=== PATIENT | female | born 1995 | race Caucasian/White ===

== ENCOUNTER → 2017-02-06 | Outpatient (CLI) | payer OTHER ==
[~2017-02-06] MED LIST: NITR25SU PO; POTA1POW PO; PRENTAB26 PO; birth control patch TD
== END | disposition home or self-care (01) ==
LOC: C.LAB1850 10:58
PROVIDERS: ATTEND Obstetrics & Gynecology
DX: N91.2 Amenorrhea, unspecified (principal)

== ENCOUNTER → 2017-10-30 | Outpatient (CLI) | payer OTHER | END | disposition home or self-care (01) | LOC: C.PAPS 13:38 | PROVIDERS: ATTEND Obstetrics & Gynecology | DX: Z11.3 Encounter for screening for infections with a predominantly sexual mode of transmission (principal) ==

== ENCOUNTER → 2017-10-30 | Outpatient (CLI) | payer OTHER ==
[2017-11-04 07:05] LABS: CHLAMYDIA TRACH RNA*** NOT DETECTED (NOT DETECTED); GC (NEIS GONORRHOEAE)RNA** NOT DETECTED (NOT DETECTED)
== END | disposition home or self-care (01) ==
LOC: C.LABSPEC 13:19
PROVIDERS: ATTEND Obstetrics & Gynecology
DX: Z11.3 Encounter for screening for infections with a predominantly sexual mode of transmission (principal)

== ENCOUNTER → 2017-12-18 | Outpatient (CLI) | payer OTHER | END | disposition home or self-care (01) | LOC: C.LABSPEC 17:58 | PROVIDERS: ATTEND Obstetrics & Gynecology | DX: O09.291 Supervision of pregnancy with other poor reproductive or obstetric history, first trimester (principal); Z3A.00 Weeks of gestation of pregnancy not specified ==

== ENCOUNTER → 2017-12-22 | Outpatient (CLI) | payer OTHER ==
[2017-12-22 16:55] LABS: BASO % 0.2 %; BASO ABS # 0.03 K/uL (0-0.2); EOS % 0.9 %; EOS ABS # 0.12 K/uL (0-0.5); HEMATOCRIT 40.4 % (37-47); HEMOGLOBIN 14.2 g/dL (12.0-16.0); IG# 0.06 K/uL (0.00-0.02); LYMPH % 18.8 %; LYMPH ABS # 2.39 K/uL (1.2-3.4); MEAN CELL VOLUME 86.7 fL (80-100); MEAN CORPUSCULAR HEMOGLOBIN 30.5 pg (25-34); MEAN CORPUSCULAR HGB CONC 35.1 g/dl (32-36); MONO % 5.5 %; NEUT % 74.1 %; NEUT ABS # 9.42 K/uL (1.4-6.5); PLATELET COUNT 292 K/uL (130-400); RED CELL DISTRIBUTION WIDTH CV 12.6 % (11.5-14.5); RED CELL DISTRIBUTION WIDTH SD 40.2 fL (36.4-46.3); WHITE BLOOD COUNT 12.72 K/uL (4.8-10.8)
== END | disposition home or self-care (01) ==
LOC: C.LAB1850 16:19
PROVIDERS: ATTEND Obstetrics & Gynecology
DX: O09.291 Supervision of pregnancy with other poor reproductive or obstetric history, first trimester (principal)

== ENCOUNTER → 2017-12-22 | Outpatient (CLI) | payer OTHER | END | disposition home or self-care (01) | LOC: C.LABSPEC 17:48 | PROVIDERS: ATTEND Obstetrics & Gynecology | DX: O09.291 Supervision of pregnancy with other poor reproductive or obstetric history, first trimester (principal) ==

== ENCOUNTER → 2018-02-16 | Outpatient (CLI) | payer OTHER | END | disposition home or self-care (01) | LOC: C.LAB1850 17:05 | PROVIDERS: ATTEND Obstetrics & Gynecology | DX: O09.292 Supervision of pregnancy with other poor reproductive or obstetric history, second trimester (principal); Z3A.00 Weeks of gestation of pregnancy not specified ==

== ENCOUNTER 2025-01-16 01:15 | Observation (INO) ==
[2025-01-16] MEDS: MoRPHine SULFATE 2 MG/ML CARP IV STA (01:51)
[2025-01-16] MEDS: ONDANSETRON INJ 2 MG/ML 2 ML VIAL IV STA ×2 (01:51→05:31)
[2025-01-16 01:59] LABS: Hematocrit (blood only) 42.2 % (37.0-47.0); Hemoglobin 14.2 g/dl (12.0-16.0); Mean Corpuscular Hemoglobin 28.5 pg (25.0-34.0); Mean Corpuscular Hgb Conc 33.6 g/dL (32.0-36.0); Mean Corpuscular Volume 84.7 fL (80.0-100.0); Mean Platelet Volume 10.5 fL (9.4-12.4); Platelet Count 351 K/uL (130-400); RDW Coefficient of Variation 12.5 % (11.5-14.5); RDW Standard Deviation 38.3 fL (36.4-46.3); Red Blood Count 4.98 M/uL (4.20-5.40); White Blood Count 18.94 K/ul (4.8-10.8)
[2025-01-16 03:09] LABS: Appearance Urine Cloudy (Clear); Bacteria Urine Automated 2+ (None Seen); Bilirubin Urine Negative (Negative); Blood Urine 2+ (Negative); Calcium Oxalate Crystals Urine Present (None Prsent); Cast Urine Automated 0-2 /lpf (0-2); Color Urine Dark Yellow; Glucose Urine UA Negative (Negative); Ketones Urine 2+ (Negative); Leukocyte Esterase Urine Negative (Negative); Mucus Urine Present (None Prsent); Nitrite Urine Negative (Negative); Protein Urine Trace (Negative); Specific Gravity Urine 1.029 (1.000-1.030); Urobilinogen Urine Negative (Negative); WBC Urine Automated 0-5 /hpf (0-5)
[2025-01-16 03:14] LABS: Alanine Aminotransferase 27 U/L (7-52); Albumin Globulin Ratio 1.5 (0.9-2); Albumin Level 4.5 gm/dl (3.4-5.0); Alkaline Phosphatase 56 U/L (34-104); Anion Gap 9 (3-11); Aspartate Aminotransferase 22 U/L (13-39); BUN Creatinine Ratio 10.7 (10-20); Basophils # (auto) 0.07 K/uL (0.00-0.20); Basophils % (auto) 0.4 %; Bilirubin,Total 0.5 mg/dl (0.2-1.0); Blood Urea Nitrogen 9 mg/dl (6-23); Calcium 9.4 mg/dl (8.6-10.3); Carbon Dioxide 24 mmol/L (21-32); Chloride 107 mmol/L (98-107); Creatinine Clr Calc Pharmacy 106.8 ml/min; Eosinophils # (auto) 0.61 K/uL (0.00-0.50); Eosinophils % (auto) 3.2 %; Glucose 153 mg/dl (70-99(Fasting)); Immature Granulocytes % (auto) 0.5 %; Lipase 4 U/L (11-82); Lymphocytes # (auto) 1.91 K/uL (1.20-3.40); Lymphocytes % (auto) 10.1 %; Magnesium 1.7 mg/dl (1.7-2.4); Monocytes # (auto) 0.65 K/uL (0.11-0.59); Monocytes % (auto) 3.4 %; Neutrophils % (auto) 82.4 %; Potassium 3.2 mmol/L (3.5-5.1); Sodium 140 mmol/L (136-145); Total Protein 7.5 gm/dl (6.0-8.3)
[2025-01-16 03:20] LABS: Troponin I High Sensitivity < 2.3 pg/ml (0-14)
[2025-01-16] MEDS: OPTIRAY 320 100ml IV ONE (03:41)
[2025-01-16] MEDS: SODIUM CHLORIDE 0.9% 1,000 ML IV ONE (03:49)
[2025-01-16] MEDS: MoRPHine SULFATE 4 MG/ML 1 ML CARP\\VIAL IV STA (04:03)
--- NOTE | 2025-01-16 04:06 | Ultrasound Report ---
EXAM: US pelvic complete CLINICAL HISTORY: Left side pain. hx hyster. Evaluation of ovary. TECHNIQUE: Ultrasound examination of the pelvis was performed in real-time and duplex using a trans-abdominal approach. The vascular flow was evaluated using color flow and with a spectral pattern of the flow waveform. COMPARISON: None. FINDINGS: Uterus: The uterus is not visualized. (Hx of hysterectomy) Ovaries: Right ovary size: 3.3 X 2.6 X 2.3 cm. It shows an ovarian cyst measuring 2.4 x 2.1 x 1.8 cm. Left ovary size: 3 X 1.1 X 1.6 cm. It lies high in the pelvis. Ovaries are normal in size with preserved follicular development and preserved blood flow. No ovarian solid masses or free fluid were identified. Adnexa: Normal appearance without evidence of masses or free fluid. Bladder: Urinary bladder: Not clearly visualized, likely due to empty status with no definite intraluminal masses. IMPRESSION: 1. Unremarkable both ovaries with likely right dominant follicle, measuring 2.4 cm. 2. Nonvisualization of the uterus (history of hysterectomy). 3. No free fluid was noted in the pelvis. RECOMMENDATIONS: Clinical correlation with symptoms and further evaluation as indicated. Electronically signed by Sachin Franz 01-16-2025 04:06 AM
--- NOTE | 2025-01-16 04:27 | CT Scan Report ---
EXAM: CT abd pelvis IV con only CLINICAL HISTORY: left side abdominal pain TECHNIQUE: Multiple contiguous axial images were obtained from the level of diaphragm to the pubis symphysis. This study was acquired after the IV administration of iodinated contrast material, given the patients indications for the examination. If IV contrast material had not been administered, the likelihood of detecting abnormalities relevant to the patients condition would have been substantially decreased. Coronal and sagittal reformatted images were generated and reviewed to improve anatomic localization and optimize lesion detection. CT scan was performed according to ALARA (as low as reasonable achievable). COMPARISON: No FINDINGS: The visualized lung bases are clear. ABDOMEN/PELVIS: The liver is normal in size and attenuation. No focal liver lesions are seen. There is no intra or extrahepatic biliary ductal dilatation. Hepatic vasculature is patent. The gallbladder is unremarkable. The spleen, pancreas, and adrenal glands are unremarkable. The kidneys are normal in size and attenuation. There is no perinephric fat stranding. No renal calculi or renal masses are identified. Calculus of size 4.8mm is noted in the left distal ureter causing mild left hydroureteronephrosis. The right ureter is normal in caliber and no ureteral calculus is seen. The bladder is normal in contour. Follicular cyst of size 20 x 16mm in right ovary. No evidence of focal or diffuse bowel wall thickening or evidence of bowel obstruction is seen. The appendix is visualized in the right lower quadrant and appears within normal limits. No adenopathy or fluid collections are seen. The aorta is normal in caliber. No aggressive appearing osseous lesions are identified. IMPRESSION: 1. Obstructive left distal ureteric calculus causing mild left hydroureteronephrosis. Electronically signed by Torito Lucia 01-16-2025 04:27 AM
[2025-01-16 04:41] LABS: Adenovirus PCR Not Detected (NotDetected); Bordetella parapertussis PCR Not Detected (NotDetected); Bordetella pertussis PCR Not Detected (NotDetected); Chlamydia pneumoniae PCR Not Detected (NotDetected); Coronavirus 229E PCR Not Detected (NotDetected); Coronavirus CoV-2 (COVID19)PCR Not Detected (NotDetected); Coronavirus HKU1 PCR Not Detected (NotDetected); Coronavirus NL63 PCR Not Detected (NotDetected); Coronavirus OC43PCR Not Detected (NotDetected); Human Metapneumovirus PCR Not Detected (NotDetected); Influenza A PCR Not Detected (NotDetected); Influenza B PCR Not Detected (NotDetected); Mycoplasma pneumoniae PCR Not Detected (NotDetected); Parainfluenza Virus 1 PCR Not Detected (NotDetected); Parainfluenza Virus 2 PCR Not Detected (NotDetected); Parainfluenza Virus 3 PCR Not Detected (NotDetected); Parainfluenza Virus 4 PCR Not Detected (NotDetected); Respiratory Syncytial VirusPCR Not Detected (NotDetected); Rhinovirus/Enterovirus PCR Not Detected (NotDetected)
[2025-01-16] MEDS: cefTRIAXone SODIUM 2,000 MG/50 ML BAG IV STA (04:58)
--- NOTE | 2025-01-16 05:18 | History & Physical Report ---
Date of Service January 16, 2025 Assessment & Plan (1) Renal calculus, left: Plan 29-year-old female PMHx anxiety, premenstrual tension syndrome, and partial hysterectomy presenting for L sided flank pain starting at 2230. ED evaluation reveals leukocytosis 18.94, neutrophil predominant; CMP potassium 3.2, lipase 4; UA with ketones, blood, RBC, 2+ bacteria, calcium oxalate crystals, and mucus; BioFire negative; CTAP reveals obstructive L distal ureteric calculus causing mild L hydroureteronephrosis; pelvic ultrasound unremarkable ovaries with likely are dominant follicle, no free fluid in pelvis; EKG NSR with sinus arrhythmia at 89 bpm. Provided with 1L NSS, ondansetron, morphine, and Rocephin in ED. 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 Does have history of partial hysterectomy approximately 1 year ago, without history of renal calculi. Patient without history of Pseudomonas, however, no prior urine cultures able to be evaluated. No temperature reported, but patient has remained tachycardic in the low 100s throughout ED stay. Overall, pain being managed and pt remains without fever. Slightly tachycardic but has had h/o tachycardia in the past and appears to be relatively appropriate. Will place on tele to monitor. - UA shows ketones, blood, RBC, bacteria, calcium oxalate crystals, and mucus; pending culture - ? bacteria vs contaminant however given leukocytosis in presence of renal calculi, will opt to continue antibiotics - CTAP with L distal ureteric calculus causing mild L hydroureteronephrosis - Pelvic ultrasound with unremarkable ovaries and no free fluid in pelvis - Urine strainer - Plasma-Lyte @ 100 mL/hr - Ceftriaxone 2g IV daily; Zofran as needed N/V, morphine as needed pain - Urology consulted- appreciate input and recs; will remain NPO until urology can evaluate #Hypokalemia Asymptomatic currently - K 3.2; Mg 1.7- BMP am - 40 mEq KCl po #Anxiety- Lexapro, continue #H/o seizure- Follows with neurology annually, last seizure appears to be March 2016; on Keppra at baseline, no missed doses- continue Dispo: Admit, med/telemetry VTE prophylaxis: Encourage ambulation, consider adding chemical prophylaxis if prolonged stay This document was dictated utilizing Dragon Medical One. Please excuse any grammatical errors that may be secondary to use of this software. Admission and Anticipated Discharge Date Admission Date: 01/16/2025 History of Present Illness Chief Complaint: L flank pain Primary Care Provider: Tramaine Barrientos DO 29-year-old female PMHx anxiety, premenstrual tension syndrome, and partial hysterectomy presenting for L sided flank pain starting at 2230. Patient reports sudden onset L sided flank pain that was 10 out of 10 in nature and a sharp pain. States it started to radiate to the front but did not radiate into groin. At time of visit, pain has subsided some following pain medication administration and is currently 7 out of 10 on the pain scale. Patient has had episodes of nausea with vomiting since the onset of the pain. Specifically denying dysuria, frequency, urgency, or hematuria. States that she has never had this happen before. No fever or chills. Otherwise denying chest pain, shortness of breath, cough stations, abdominal pain, diarrhea/constipation, LUTS, URI symptoms, or headache. ED evaluation reveals leukocytosis 18.94, neutrophil predominant; CMP potassium 3.2, lipase 4; UA with ketones, blood, RBC, 2+ bacteria, calcium oxalate crystals, and mucus; BioFire negative; CTAP reveals obstructive L distal ureteric calculus causing mild L hydroureter onephrosis; pelvic ultrasound unremarkable ovaries with likely are dominant follicle, no free fluid in pelvis; EKG NSR with sinus arrhythmia at 89 bpm. Provided with 1L NSS, ondansetron, morphine, and Rocephin in ED. Please see Dr. Burgos's attestation for adjustments/additions to treatment plan. Allergies Allergy/AdvReac Type Severity Reaction Status Date / Time Penicillins Allergy Mild GI Upset. Verified 09/20/24 12:09 Can take amoxicillin latex Allergy Unknown LATEX Verified 09/20/24 12:09 CONDOMS "BURN" Home Medications Medication Instructions Recorded Confirmed Type levetiracetam 500 mg tablet 500 mg PO BID 05/24/23 01/16/25 History (Keppra) loratadine 10 mg tablet (Claritin) 10 mg PO DAILY PRN Allergy Symptoms 04/22/24 01/16/25 History escitalopram oxalate 10 mg tablet 10 mg PO DAILY #90 tabs 08/30/24 01/16/25 Rx Past Med/Surg History Problem List (Updated 01/16/25 @ 11:03 by Ashutosh Paz MD) Nephrolithiasis Renal calculus, left Tachycardia Low vitamin D level Dental caries Left ear pain Immunization, varicella School physical exam Obese Anxiety Annual physical exam Hypokalemia (Acute) Premenstrual tension syndrome Medical History (spontaneous vaginal delivery) Pelvic pain complicating GERD (gastroesophageal reflux disease) Occasional heartburn PIH ( induced hypertension) hx Seizure Last Seizure - 2015. Takes Keppra 500mg PO BID Surgical History History of hysterectomy 07-11-[address] Reynolds, [facility] History of dilatation and curettage SAB 05/2014 Family History Grandmother (Paternal) Breast cancer Diabetes Dyslipidemia Hypertension Heart disease Family/Other Prostate cancer Denies family history of Ovarian cancer Myocardial infarction Colorectal cancer Social History Smoking Status: Never smoker Second Hand Exposure: Yes (hx growing up); Do You Dip or Chew Tobacco: No; Hx Alcohol Use: No Hx Substance Use: No Preferred Language: Nepali Communication Ability: Effective Communication Ability Comment: glasses Visual Impairment: Limited Hearing Ability: Normal 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: No Beliefs That Will Affect Care: None marital status: Current Living Situation: Spouse Current Living Situation Comment: 1 level apartment with and daughter current occupational status: employed How many Children do You have: 1 Feels Safe at Home: Yes and No Is there a partner from a previous relationship who is making you feel unsafe now?: No Safety Concerns: Feels Safe At This Time Childhood Exposure to Second-Hand Smoke: Yes Diet: regular caffeine: Yes during the past year weight has: remained stable Dental Care, Regularly: Yes Physical Activity Frequency: 3-4 Times per Week Seatbelt Use: always Sunscreen Use: Yes Do you think of yourself as: straight/heterosexual Sexual Activity: has been sexually active within the last 12 months Gender Identity: Female Assistive Devices: Glasses Review of Systems Review of Systems: All systems reviewed & are unremarkable except as noted in Subjective Physical Exam Physical Exam: General: No acute distress, appears uncomfortable Skin: Warm and dry Head: Normocephalic, atraumatic Eyes: PERRL, conjunctivae clear, sclera non-icteric ENT: External ear and ear canal without swelling; nose atraumatic; fair dentition, tongue normal appearance, pharynx normal but dry Neck: Supple, no LAD Cardio: Slightly tachycardic in the 100s, regular rhythm, no M/G/R, S1 and S2 normal Resp: No respiratory distress, Lungs CTA in all lobes bilaterally, no wheezes, rales, or rhonchi Abdomen: Soft, symmetric, nontender; No masses or hepatosplenomegaly; Bowel sounds normoactive; CVA tenderness L side MSK: No deformities; pulses palpable and equal; no edema. Neuro: Awake, alert; CN grossly intact Psych: Appropriate mood and affect; good judgement and insight. Results & Data Results & Data Vital Signs (Past 12 Hours) Vital Signs Temp Pulse Resp BP Pulse Ox O2 Del Method 01/16/25 03:54 103 H 21 95 Room Air 01/16/25 03:53 142/103 H 01/16/25 01:47 97 Room Air 01/16/25 01:33 100 H 17 98 Room Air 01/16/25 01:30 141/80 H 01/16/25 01:29 109 H 01/16/25 01:19 36.3 C L 99 H 17 134/98 96 Room Air Laboratory Results 01/16/25 01:30 Urine Culture - Pending Urine,Clean Catch 01/16/25 01/16/25 01/16/25 01:56 01:30 01:26 WBC 18.94 H RBC 4.98 Hgb 14.2 Hct 42.2 MCV 84.7 MCH 28.5 MCHC 33.6 RDW Std Deviation 38.3 RDW Coeff of Nathalia 12.5 Plt Count 351 MPV 10.5 Immature Gran % (Auto) 0.5 Neut % (Auto) 82.4 Lymph % (Auto) 10.1 [place] % (Auto) 3.4 Eos % (Auto) 3.2 Baso % (Auto) 0.4 Neut # (Auto) 15.60 H Lymph # (Auto) 1.91 [place] # (Auto) 0.65 H Eos # (Auto) 0.61 H Baso # (Auto) 0.07 Immature Gran # (Auto) 0.10 Sodium 140 Potassium 3.2 L Chloride 107 Carbon Dioxide 24 Anion Gap 9 BUN 9 Creatinine 0.84 Est Cr Clr Drug Dosing 106.8 eGFR 95.22 BUN/Creatinine Ratio 10.7 Glucose 153 H Calcium 9.4 Magnesium 1.7 Total Bilirubin 0.5 AST 22 ALT 27 Alkaline Phosphatase 56 Troponin I High Sens < 2.3 Total Protein 7.5 Albumin 4.5 Globulin 3.0 Albumin/Globulin Ratio 1.5 Lipase 4 L Urine Color Dark Yellow Urine Appearance Cloudy A Urine pH 5.0 Ur Specific [place] 1.029 Urine Protein Trace H Urine Glucose (UA) Negative Urine Ketones 2+ H Urine Blood 2+ H Urine Nitrite Negative Urine Bilirubin Negative Urine Urobilinogen Negative Ur Leukocyte Esterase Negative Urine WBC (Auto) 0-5 Urine RBC (Auto) 11-20 H U Hyaline Cast (Auto) 0-2 U Epithel Cells (Auto) 6-10 H Urine Bacteria (Auto) 2+ H Calcium Oxalate Crystal Present A Urine Mucus Present A Adenovirus (PCR) Not Detected B. pertussis DNA (PCR) Not Detected B.parapertussis DNA PCR Not Detected C. pneumoniae DNA (PCR) Not Detected Coronavirus OC43 (PCR) Not Detected Coronavirus HKU1 (PCR) Not Detected Coronavirus 229E (PCR) Not Detected SARS-CoV-2 (PCR) Not Detected Coronavirus NL63 (PCR) Not Detected Human Metapneumovir PCR Not Detected Influenza Type A (PCR) Not Detected Influenza Type B (PCR) Not Detected M. pneumoniae (PCR) Not Detected Parainfluenza 1 (PCR) Not Detected Parainfluenza 2 (PCR) Not Detected Parainfluenza 3 (PCR) Not Detected Parainfluenza 4 (PCR) Not Detected RSV (PCR) Not Detected Entero/Rhino (PCR) Not Detected Diagnostic Findings Abdomen/Pelvis CT 01/16/25 01:30 EXAM: CT abd pelvis IV con only CLINICAL HISTORY: left side abdominal pain TECHNIQUE: Multiple contiguous axial images were obtained from the level of diaphragm to the pubis symphysis. This study was acquired after the IV administration of iodinated contrast material, given the patients indications for the examination. If IV contrast material had not been administered, the likelihood of detecting abnormalities relevant to the patients condition would have been substantially decreased. Coronal and sagittal reformatted images were generated and reviewed to improve anatomic localization and optimize lesion detection. CT scan was performed according to ALARA (as low as reasonable achievable). COMPARISON: No FINDINGS: The visualized lung bases are clear. ABDOMEN/PELVIS: The liver is normal in size and attenuation. No focal liver lesions are seen. There is no intra or extrahepatic biliary ductal dilatation. Hepatic vasculature is patent. The gallbladder is unremarkable. The spleen, pancreas, and adrenal glands are unremarkable. The kidneys are normal in size and attenuation. There is no perinephric fat stranding. No renal calculi or renal masses are identified. Calculus of size 4.8mm is noted in the left distal ureter causing mild left hydroureteronephrosis. The right ureter is normal in caliber and no ureteral calculus is seen. The bladder is normal in contour. Follicular cyst of size 20 x 16mm in right ovary. No evidence of focal or diffuse bowel wall thickening or evidence of bowel obstruction is seen. The appendix is visualized in the right lower quadrant and appears within normal limits. No adenopathy or fluid collections are seen. The aorta is normal in caliber. No aggressive appearing osseous lesions are identified. IMPRESSION: 1. Obstructive left distal ureteric calculus causing mild left hydroureteronephrosis. Electronically signed by Torito Lucia 01-16-2025 04:27 AM Pelvis Ultrasound 01/16/25 01:45 EXAM: US pelvic complete CLINICAL HISTORY: Left side pain. hx hyster. Evaluation of ovary. TECHNIQUE: Ultrasound examination of the pelvis was performed in real-time and duplex using a trans-abdominal approach. The vascular flow was evaluated using color flow and with a spectral pattern of the flow waveform. COMPARISON: None. FINDINGS: Uterus: The uterus is not visualized. (Hx of hysterectomy) Ovaries: Right ovary size: 3.3 X 2.6 X 2.3 cm. It shows an ovarian cyst measuring 2.4 x 2.1 x 1.8 cm. Left ovary size: 3 X 1.1 X 1.6 cm. It lies high in the pelvis. Ovaries are normal in size with preserved follicular development and preserved blood flow. No ovarian solid masses or free fluid were identified. Adnexa: Normal appearance without evidence of masses or free fluid. Bladder: Urinary bladder: Not clearly visualized, likely due to empty status with no definite intraluminal masses. IMPRESSION: 1. Unremarkable both ovaries with likely right dominant follicle, measuring 2.4 cm. 2. Nonvisualization of the uterus (history of hysterectomy). 3. No free fluid was noted in the pelvis. RECOMMENDATIONS: Clinical correlation with symptoms and further evaluation as indicated. Electronically signed by Sachin Franz 01-16-2025 04:06 AM Medications Administered NSS 1L Ondansetron 4 megs IV Morphine sulfate 6 mg IV total Ceftriaxone 2 g IV ECG Additional Comments: NSR with sinus arrhythmia 89 bpm, [place] 144, QRS 80, QT/QTc 350/425, PRT 61/56/52 Code Status & VTE Plan Code Status Full Supervising Physician Co-Signing Physician Notes Attending addendum: I have physically seen this patient, have supervised the HANNAH's activities, and agree with the H&P unless as otherwise noted. Assessment and Plan: The patient is a 29-year-old female with past medical history including anxiety, premenstrual tension syndrome, and partial hysterectomy, who presents to the emergency department with left-sided flank pain that began at 2230 this evening. Laboratory evaluation includes neutrophilic leukocytosis, with total WBC 18.94, and urinalysis suggestive of urinary tract infection along with calcium oxalate crystals. CT scan abdomen and pelvis reveals an obstructive left distal ureteral calculus causing mild left hydro ureteronephrosis, pelvic ultrasound is unremarkable except for a dominant follicle and ovaries. [facility] to [facility]. #Left renal obstructing calculus/left hydroureteronephrosis- NPO except essential medications Follow urine culture and sensitivity Status post 2 L normal saline bolus from the ED Continue Plasma-Lyte at 100 mL/h x 1 additional liter Continue empiric ceftriaxone 2 g IV daily begun in the ED Zofran 4 mg IV every 6 hours as needed Morphine as noted for moderate to severe pain Consult urology #Hypokalemia- Potassium 2.7 on admission To receive Klor-Con 40 mEq p.o., IV fluids as above, and recheck laboratories in the a.m. hypomagnesemia #Magnesium- Magnesium level 1.7 on admission labs- Give magnesium sulfate 1 g IV Repeat laboratories in a.m. #Chronic medical conditions: Anxiety-continue Lexapro Seizure disorder-continue Keppra Remaining orders and notations as noted PG Care Time/CCT Total # of Minutes Spent Total Time Spent with Patient: Total time spent is greater than 50% in coordination of care (as documented) at patient's floor/unit and/or counseling patient: Coding Level of Care Code 96783 INT INP/OBS CARE 3/75MIN Diagnoses Renal calculus, left N20.0
--- NOTE | 2025-01-16 05:31 | Emergency Department Note ---
History of Present Illness General Chief complaint: Flank Pain Stated complaint: Lower Left Sided Flank Pain Time Seen by Provider: 01/16/25 01:18 History of Present Illness Maximum Pain Intensity: 7 This is a 29-year-old female presenting to the emergency department for evaluation of acute onset left-sided flank pain and abdominal pain. Patient's symptoms began around 10:30 PM, roughly 3 hours prior to arrival. The patient was at work at onset of symptoms and does arrive via EMS. She is nauseated without vomiting. She is felt warm but no distinct fever. Patient denies chance of as she has had partial hysterectomy in the past. She does have both her ovaries. No vaginal drainage or discharge. She is unsure if symptoms improve or worsen with position. Discomfort does seem colicky in nature, and is a 9/10 at worst and currently a 4/10. She has not had an opportunity to take anything [id number] for symptoms as they began at work. No rash. Home Medications Medication Instructions Recorded Confirmed Type levetiracetam 500 mg tablet 500 mg PO BID 05/24/23 01/16/25 History (Keppra) loratadine 10 mg tablet (Claritin) 10 mg PO DAILY PRN Allergy Symptoms 04/22/24 01/16/25 History escitalopram oxalate 10 mg tablet 10 mg PO DAILY #90 tabs 08/30/24 01/16/25 Rx Allergies Allergy/AdvReac Type Severity Reaction Status Date / Time Penicillins Allergy Mild GI Upset. Verified 09/20/24 12:09 Can take amoxicillin latex Allergy Unknown LATEX Verified 09/20/24 12:09 CONDOMS "BURN" Past Med/Surg History Problem List (Updated 01/16/25 @ 21:36 by Vic Guerrero PA-C) Elevated WBC count (Acute) Nephrolithiasis Renal calculus, left (Acute) Tachycardia Low vitamin D level Dental caries Left ear pain Immunization, varicella School physical exam Obese Anxiety Annual physical exam Hypokalemia (Acute) Premenstrual tension syndrome Medical History (spontaneous vaginal delivery) Pelvic pain complicating GERD (gastroesophageal reflux disease) Occasional heartburn PIH ( induced hypertension) hx Seizure Last Seizure - 2015. Takes Keppra 500mg PO BID Surgical History History of hysterectomy 07-11-[address] Reynolds, [facility] History of dilatation and curettage SAB 05/2014 Family History Grandmother (Paternal) Breast cancer Diabetes Dyslipidemia Hypertension Heart disease Family/Other Prostate cancer Denies family history of Ovarian cancer Myocardial infarction Colorectal cancer Social History Smoking Status: Never smoker Second Hand Exposure: Yes (hx growing up); Do You Dip or Chew Tobacco: No; Hx Alcohol Use: No Hx Substance Use: No Preferred Language: Nigerian Communication Ability: Effective Communication Ability Comment: glasses Visual Impairment: Limited Hearing Ability: Normal Cognos Architect Required: No Beliefs That Will Affect Care: None marital status: Current Living Situation: Spouse Current Living Situation Comment: 1 level apartment with and daughter current occupational status: employed How many Children do You have: 1 Feels Safe at Home: Yes and No Is there a partner from a previous relationship who is making you feel unsafe now?: No Safety Concerns: Feels Safe At This Time Childhood Exposure to Second-Hand Smoke: Yes Diet: regular caffeine: Yes during the past year weight has: remained stable Dental Care, Regularly: Yes Physical Activity Frequency: 3-4 Times per Week Seatbelt Use: always Sunscreen Use: Yes Do you think of yourself as: straight/heterosexual Sexual Activity: has been sexually active within the last 12 months Gender Identity: Female Assistive Devices: Glasses Review of Systems A total of 10 systems reviewed and were otherwise negative Physical Exam Vital Signs Vital Signs - 24 hr 01/16/25 01:19 01/16/25 01:29 01/16/25 01:30 Temperature 36.3 C L Temperature Source Oral Pulse Rate 99 H 109 H Pulse Rate from SpO2 Sensor Respiratory Rate 17 Respiratory Effort / Characteristics Non-Labored Spontaneous Respiratory Depth Normal Respiratory Pattern Regular Blood Pressure 134/98 141/80 H Blood Pressure Mean 110 106 Blood Pressure Position Lying Pulse Oximetry 96 Oxygen Delivery Method Room Air Sepsis Recent Fever Within 48 Hours No Sepsis New/Unexplained Change in Mental Status N/A Sepsis Action Taken by Nursing No Action Required 01/16/25 01:33 01/16/25 01:47 01/16/25 03:53 Temperature Temperature Source Pulse Rate 100 H Pulse Rate from SpO2 Sensor 94 H Respiratory Rate 17 Respiratory Effort / Characteristics Respiratory Depth Respiratory Pattern Blood Pressure 142/103 H Blood Pressure Mean 111 Blood Pressure Position Pulse Oximetry 98 97 Oxygen Delivery Method Room Air Room Air Sepsis Recent Fever Within 48 Hours Sepsis New/Unexplained Change in Mental Status Sepsis Action Taken by Nursing 01/16/25 03:54 01/16/25 04:27 01/16/25 04:30 Temperature Temperature Source Pulse Rate 103 H Pulse Rate from SpO2 Sensor 101 H 99 H Respiratory Rate 21 Respiratory Effort / Characteristics Respiratory Depth Respiratory Pattern Blood Pressure 132/81 Blood Pressure Mean 95 Blood Pressure Position Pulse Oximetry 95 97 Oxygen Delivery Method Room Air Room Air Sepsis Recent Fever Within 48 Hours Sepsis New/Unexplained Change in Mental Status Sepsis Action Taken by Nursing 01/16/25 05:00 01/16/25 05:03 01/16/25 05:32 Temperature Temperature Source Pulse Rate 102 H Pulse Rate from SpO2 Sensor 109 H Respiratory Rate Respiratory Effort / Characteristics Respiratory Depth Respiratory Pattern Blood Pressure 140/86 Blood Pressure Mean 95 Blood Pressure Position Pulse Oximetry 98 Oxygen Delivery Method Room Air Sepsis Recent Fever Within 48 Hours Sepsis New/Unexplained Change in Mental Status Sepsis Action Taken by Nursing VITALS: Vitals are noted on the nurse's note and reviewed by myself. Vital signs with tachycardia GENERAL: Well-developed, well-nourished, white female, who is uncomfortable appearing on presentation. HEAD: Normocephalic atraumatic. EARS: External ear normal. External auditory canals clear, tympanic membranes pearly anthony without erythema or effusion bilaterally. EYES: Pupils equal round and reactive to light and accommodation. Conjunctivae without injection, sclerae without icterus. Extraocular movements intact. NOSE: Patent, turbinates without inflammation or discharge. MOUTH: Mucous membranes moist. Tonsils are not enlarged. Pharynx without erythema, blood, or exudate. Uvula midline. Airway patent. NECK: Supple without nuchal rigidity. No lymphadenopathy. No thyromegaly. Cervical spine is nontender. HEART: Tachy rate and rhythm without murmurs gallops or rubs. LUNGS: Clear to auscultation bilaterally without wheezes, rales or rhonchi. No retractions or accessory muscle use. ABDOMEN: Positive normal bowel sounds x 4. Soft, nontender, without masses or organomegaly. No guarding or rebound tenderness. MUSCULOSKELETAL: No muscle atrophy, erythema, or edema noted. Full range of motion in all extremities. Course Administered Medications Escitalopram Oxalate (Escitalopram Oxalate 10 Mg Tab) 10 mg PO DAILY BRENDAN Stop: 02/15/25 08:59 Last Admin: 01/16/25 09:13 Dose: 10 mg Documented By: FAN Parenteral Electrolytes (Plasma-Lyte A Ph 7.4) 1,000 mls @ 100 mls/hr IV .Q10H BRENDAN Stop: 01/17/25 11:59 Last Admin: 01/16/25 17:02 Dose: 100 mls/hr Documented By: Infusion: 01/16/25 16:48 Dose: Infused Documented By: Admin: 01/16/25 06:48 Dose: 100 mls/hr Documented By: Levetiracetam (Levetiracetam 500 Mg Tab) 500 mg PO BID BRENDAN Stop: 02/15/25 08:59 Last Admin: 01/16/25 20:16 Dose: 500 mg Documented By: Admin: 01/16/25 09:03 Dose: Not Given Documented By: FAN Morphine Sulfate (Morphine Sulfate 2 Mg/Ml Carp) 2 mg IV Q3H PRN PRN Reason: Pain (1,2,3,4,5) & Pre PT Stop: 01/30/25 05:58 Last Admin: 01/16/25 20:04 Dose: 2 mg Documented By: JENNIFFER Morphine Sulfate (Morphine Sulfate 4 Mg/Ml 1 Ml Carp\\Vial) 4 mg IV Q3H PRN PRN Reason: Pain (6,7,8,9,10) Stop: 01/30/25 05:58 Last Admin: 01/16/25 11:01 Dose: 4 mg Documented By: FAN Tamsulosin HCl (Tamsulosin Hcl 0.4 Mg Cap) 0.4 mg PO HS BRENDAN Stop: 02/15/25 20:59 Last Admin: 01/16/25 20:17 Dose: 0.4 mg Documented By: JENNIFFER Discontinued Medications Sodium Chloride (Nss) 1,000 mls @ 999 mls/hr IV .Q1H1M ONE Stop: 01/16/25 04:21 Last Infusion: 01/16/25 04:51 Dose: Infused Documented By: Admin: 01/16/25 03:49 Dose: 999 mls/hr Documented By: Ceftriaxone Sodium (Rocephin) 2,000 mg in 50 mls @ 100 mls/hr IV NOW STA Stop: 01/16/25 05:12 Last Infusion: 01/16/25 05:30 Dose: Infused Documented By: Admin: 01/16/25 04:58 Dose: 100 mls/hr Documented By: Ioversol (Optiray 320 100ml) 94 ml IV ONCE ONE Stop: 01/16/25 03:42 Last Admin: 01/16/25 03:41 Dose: 94 ml Documented By: LOLI Ketorolac Tromethamine (Ketorolac 30 Mg/Ml Vial) 30 mg IV NOW ONE Stop: 01/16/25 10:59 Last Admin: 01/16/25 12:08 Dose: 30 mg Documented By: FAN Levetiracetam (Levetiracetam 500 Mg Tab) 500 mg PO ONE ONE Stop: 01/16/25 09:01 Last Admin: 01/16/25 07:51 Dose: 500 mg Documented By: DANTE Morphine Sulfate (Morphine Sulfate 2 Mg/Ml Carp) 2 mg IV NOW STA Stop: 01/16/25 01:36 Last Admin: 01/16/25 01:51 Dose: 2 mg Documented By: Morphine Sulfate (Morphine Sulfate 4 Mg/Ml 1 Ml Carp\\Vial) 4 mg IV NOW STA Stop: 01/16/25 04:02 Last Admin: 01/16/25 04:03 Dose: 4 mg Documented By: Morphine Sulfate (Morphine Sulfate 4 Mg/Ml 1 Ml Carp\\Vial) 4 mg IV Q30M PRN PRN Reason: Pain Stop: 01/30/25 05:19 Last Admin: 01/16/25 07:55 Dose: 4 mg Documented By: Admin: 01/16/25 05:45 Dose: 4 mg Documented By: Ondansetron HCl (Ondansetron Inj 2 Mg/Ml 2 Ml Vial) 4 mg IV NOW STA Stop: 01/16/25 01:36 Last Admin: 01/16/25 01:51 Dose: 4 mg Documented By: Ondansetron HCl (Ondansetron Inj 2 Mg/Ml 2 Ml Vial) 4 mg IV NOW STA Stop: 01/16/25 05:20 Last Admin: 01/16/25 05:31 Dose: 4 mg Documented By: Potassium Chloride (Potassium Chloride Crtab 20 Meq Tabcr) 40 meq PO NOW STA Stop: 01/16/25 06:00 Last Admin: 01/16/25 06:48 Dose: 40 meq Documented By: Tamsulosin HCl (Tamsulosin Hcl 0.4 Mg Cap) 0.4 mg PO NOW ONE Stop: 01/16/25 10:59 Last Admin: 01/16/25 12:09 Dose: 0.4 mg Documented By: FAN Medical Decision Making Differential Diagnosis Differential diagnosis: Etiologies such as biliary colic, cholecystitis, hepatitis, pancreatitis, cardiac disease, pancreatitis, gastritis, peptic ulcer disease, appendicitis, cystitis, diverticulitis, mesenteric ischemia, inflammatory bowel disease, ileus, bowel obstruction, testicular/adnexal torsion, aortic pathology, shingles, as well as others were considered Laboratory Data 01/16/25 01:26 01/16/25 01:26 Lab Results 01/16/25 01/16/25 01/16/25 Range/Units 01:26 01:30 01:56 WBC 18.94 H (4.8-10.8) K/ul RBC 4.98 (4.20-5.40) M/uL Hgb 14.2 (12.0-16.0) g/dl Hct 42.2 (37.0-47.0) % MCV 84.7 (80.0-100.0) fL MCH 28.5 (25.0-34.0) pg MCHC 33.6 (32.0-36.0) g/dL RDW Std Deviation 38.3 (36.4-46.3) fL RDW Coeff of Nathalia 12.5 (11.5-14.5) % Plt Count 351 (130-400) K/uL MPV 10.5 (9.4-12.4) fL Immature Gran % (Auto) 0.5 % Neut % (Auto) 82.4 % Lymph % (Auto) 10.1 % [place] % (Auto) 3.4 % Eos % (Auto) 3.2 % Baso % (Auto) 0.4 % Neut # (Auto) 15.60 H (1.40-6.50) K/uL Lymph # (Auto) 1.91 (1.20-3.40) K/uL [place] # (Auto) 0.65 H (0.11-0.59) K/uL Eos # (Auto) 0.61 H (0.00-0.50) K/uL Baso # (Auto) 0.07 (0.00-0.20) K/uL Immature Gran # (Auto) 0.10 (0.01-0.20) K/uL Sodium 140 (136-145) mmol/L Potassium 3.2 L (3.5-5.1) mmol/L Chloride 107 (98-107) mmol/L Carbon Dioxide 24 (21-32) mmol/L Anion Gap 9 (3-11) BUN 9 (6-23) mg/dl Creatinine 0.84 (0.6-1.2) mg/dl Est Cr Clr Drug Dosing 106.8 ml/min eGFR 95.22 BUN/Creatinine Ratio 10.7 (10-20) Glucose 153 H (70-99(Fasting)) mg/dl Calcium 9.4 (8.6-10.3) mg/dl Magnesium 1.7 (1.7-2.4) mg/dl Total Bilirubin 0.5 (0.2-1.0) mg/dl AST 22 (13-39) U/L ALT 27 (7-52) U/L Alkaline Phosphatase 56 (34-104) U/L Troponin I High Sens < 2.3 (0-14) pg/ml Total Protein 7.5 (6.0-8.3) gm/dl Albumin 4.5 (3.4-5.0) gm/dl Globulin 3.0 (2.5-4.0) gm/dl Albumin/Globulin Ratio 1.5 (0.9-2) Lipase 4 L (11-82) U/L Urine Color Dark Yellow Urine Appearance Cloudy A (Clear) Urine pH 5.0 (4.5-7.5) Ur Specific Rosman 1.029 (1.000-1.030) Urine Protein Trace H (Negative) Urine Glucose (UA) Negative (Negative) Urine Ketones 2+ H (Negative) Urine Blood 2+ H (Negative) Urine Nitrite Negative (Negative) Urine Bilirubin Negative (Negative) Urine Urobilinogen Negative (Negative) Ur Leukocyte Esterase Negative (Negative) Urine WBC (Auto) 0-5 (0-5) /hpf Urine RBC (Auto) 11-20 H (0-2) /hpf U Hyaline Cast (Auto) 0-2 (0-2) /lpf U Epithel Cells (Auto) 6-10 H (0-2) /hpf Urine Bacteria (Auto) 2+ H (None Seen) Calcium Oxalate Crystal Present A (None Prsent) Urine Mucus Present A (None Prsent) Adenovirus (PCR) Not Detected (NotDetected) B. pertussis DNA (PCR) Not Detected (NotDetected) B.parapertussis DNA PCR Not Detected (NotDetected) C. pneumoniae DNA (PCR) Not Detected (NotDetected) Coronavirus OC43 (PCR) Not Detected (NotDetected) Coronavirus HKU1 (PCR) Not Detected (NotDetected) Coronavirus 229E (PCR) Not Detected (NotDetected) SARS-CoV-2 (PCR) Not Detected (NotDetected) Coronavirus NL63 (PCR) Not Detected (NotDetected) Human Metapneumovir PCR Not Detected (NotDetected) Influenza Type A (PCR) Not Detected (NotDetected) Influenza Type B (PCR) Not Detected (NotDetected) M. pneumoniae (PCR) Not Detected (NotDetected) Parainfluenza 1 (PCR) Not Detected (NotDetected) Parainfluenza 2 (PCR) Not Detected (NotDetected) Parainfluenza 3 (PCR) Not Detected (NotDetected) Parainfluenza 4 (PCR) Not Detected (NotDetected) RSV (PCR) Not Detected (NotDetected) Entero/Rhino (PCR) Not Detected (NotDetected) Imaging Data Radiologist's Impression: Abdomen/Pelvis CT 01/16/25 01:30 EXAM: CT abd pelvis IV con only CLINICAL HISTORY: left side abdominal pain TECHNIQUE: Multiple contiguous axial images were obtained from the level of diaphragm to the pubis symphysis. This study was acquired after the IV administration of iodinated contrast material, given the patients indications for the examination. If IV contrast material had not been administered, the likelihood of detecting abnormalities relevant to the patients condition would have been substantially decreased. Coronal and sagittal reformatted images were generated and reviewed to improve anatomic localization and optimize lesion detection. CT scan was performed according to ALARA (as low as reasonable achievable). COMPARISON: No FINDINGS: The visualized lung bases are clear. ABDOMEN/PELVIS: The liver is normal in size and attenuation. No focal liver lesions are seen. There is no intra or extrahepatic biliary ductal dilatation. Hepatic vasculature is patent. The gallbladder is unremarkable. The spleen, pancreas, and adrenal glands are unremarkable. The kidneys are normal in size and attenuation. There is no perinephric fat stranding. No renal calculi or renal masses are identified. Calculus of size 4.8mm is noted in the left distal ureter causing mild left hydroureteronephrosis. The right ureter is normal in caliber and no ureteral calculus is seen. The bladder is normal in contour. Follicular cyst of size 20 x 16mm in right ovary. No evidence of focal or diffuse bowel wall thickening or evidence of bowel obstruction is seen. The appendix is visualized in the right lower quadrant and appears within normal limits. No adenopathy or fluid collections are seen. The aorta is normal in caliber. No aggressive appearing osseous lesions are identified. IMPRESSION: 1. Obstructive left distal ureteric calculus causing mild left hydroureteronephrosis. Electronically signed by Torito Lucia 01-16-2025 04:27 AM Pelvis Ultrasound 01/16/25 01:45 EXAM: US pelvic complete CLINICAL HISTORY: Left side pain. hx hyster. Evaluation of ovary. TECHNIQUE: Ultrasound examination of the pelvis was performed in real-time and duplex using a trans-abdominal approach. The vascular flow was evaluated using color flow and with a spectral pattern of the flow waveform. COMPARISON: None. FINDINGS: Uterus: The uterus is not visualized. (Hx of hysterectomy) Ovaries: Right ovary size: 3.3 X 2.6 X 2.3 cm. It shows an ovarian cyst measuring 2.4 x 2.1 x 1.8 cm. Left ovary size: 3 X 1.1 X 1.6 cm. It lies high in the pelvis. Ovaries are normal in size with preserved follicular development and preserved blood flow. No ovarian solid masses or free fluid were identified. Adnexa: Normal appearance without evidence of masses or free fluid. Bladder: Urinary bladder: Not clearly visualized, likely due to empty status with no definite intraluminal masses. IMPRESSION: 1. Unremarkable both ovaries with likely right dominant follicle, measuring 2.4 cm. 2. Nonvisualization of the uterus (history of hysterectomy). 3. No free fluid was noted in the pelvis. RECOMMENDATIONS: Clinical correlation with symptoms and further evaluation as indicated. Electronically signed by Sachin Franz 01-16-2025 04:06 AM MDM Narrative Physical exam and history were performed. Nursing notes, EMR, and Medication List were personally reviewed. No social concerns were identified as barriers to patients care. History was provided by the Patient. Patient appears to have left-sided abdominal pain bringing her to the ER. IV access was established and labs were obtained. Patient was given IV morphine and IV Zofran for comfort. She was sent to CT scan for imaging of her abdomen and pelvis. Patient's blood work is as above and was reviewed. She does have a significantly elevated white count of almost 19,000 and with 15,000 neutrophils. Lipase and transaminases are not diagnostic. She is not . Urine is with ketones, blood, bacteria, mucus, and calcium oxalate. Kidney function is preserved. CT scan was performed and reviewed by myself and radiology, and appears to show a nearly 5 mm obstructing ureteral calculi. Escalation of care is necessary, and concern is the patient could have a stone that is becoming infected. She was given IV Rocephin here in the ER. She does not seem well for discharge and case was discussed with the on-call hospitalist. Please see their dictation for further patient course, plan, and disposition. The chart was completed utilizing [employer] Speech Voice Recognition Software. Grammatical errors, random word insertions, pronoun errors, and incomplete sentences are an occasional consequence of this system due to software limitations, ambient noise, and hardware issues. Any formal questions or concerns about the content, text, or information contained within the body of this dictation should be directly addressed to the provider for clarification. Impression & Plan Renal calculus, left, Elevated WBC count Discharge Plan Visit Data Chief Complaint: Flank Pain Stated Complaint: Lower Left Sided Flank Pain ED Provider: Orly Mcdonnell ED Midlevel Provider: Vic Guerrero Discharge Problem: Renal calculus, left, Elevated WBC count Patient Disposition: Admitted As Inpatient Discharge Instructions Interventions: ED Discharge Assessment Last Done: 01/16/25 08:09
[2025-01-16] MEDS: MoRPHine SULFATE 4 MG/ML 1 ML CARP\\VIAL IV PRN ×2 (05:45→11:01)
[2025-01-16] MEDS ORDERED: ONDANSETRON INJ 2 MG/ML 2 ML VIAL IV PRN ×2 (05:59→08:28)
[2025-01-16] MEDS: PLASMA-LYTE A 1,000 ML IV SCH (06:48)
[2025-01-16] MEDS: POTASSIUM CHLORIDE CRTAB 20 MEQ TABCR PO STA (06:48)
[2025-01-16] MEDS: levETIRAcetam 500 MG TAB PO ONE (07:51)
[2025-01-16] MEDS: levETIRAcetam 500 MG TAB PO SCH (09:03)
--- NOTE | 2025-01-16 09:04 | Hospitalist Progress Note ---
Date of Service January 16, 2025 Assessment & Plan (1) Renal calculus, left: Plan 29-year-old female PMHx anxiety, premenstrual tension syndrome, and partial hysterectomy presenting obstructive L distal ureteric calculus causing mild L hydroureteronephrosis. #L Renal calculi/hydroureteronephrosis - history of partial hysterectomy approximately 1 year ago, without history of renal calculi. - sinus tachycardia in the low 100s-> continue to watch on tele - UA shows ketones, blood, RBC, bacteria, calcium oxalate crystals, and mucus; pending culture - ? bacteria vs contaminant however given leukocytosis in presence of renal calculi, will opt to continue antibiotics. No prior cultures for comparison. - CTAP with L distal ureteric calculus causing mild L hydroureteronephrosis - Pelvic ultrasound with unremarkable ovaries and no free fluid in pelvis - Urine strainer - Plasma-Lyte @ 100 mL/hr - Ceftriaxone 2g IV daily; Zofran as needed N/V, morphine as needed pain - Urology consulted- appreciate input and recs-> add tamsulosin/Toradol and trial of passage; if febrile or hemodynamically unstable plan for urgent intervention, remain NPO with nausea #Hypokalemia - K 3.2; Mg 1.7 - Repleted, BMP qAM #Anxiety- Lexapro, continue #H/o seizure- Follows with neurology annually, last seizure appears to be March 2016; on Keppra at baseline, no missed doses- continue Dispo: Admit, med/telemetry VTE prophylaxis: Encourage ambulation, hold chemical prophylaxis with ?need for urological invention Admission and Anticipated Discharge Date Admission Date: January 16, 2025 Subjective Pt seen at bedside with morning. Pain is well controlled, no acute complaints. Review of Systems Review of Systems: As per above Physical Exam Physical Exam: Constitutional: well-appearing, no acute distress HEENT: NCAT, no conjunctival injection CV: regular rhythm, no murmur appreciated, extremities well-perfused Resp: CTABL, no wheezes/rales/rhonchi appreciated, no increased work of breathing GI: soft, nondistended, nontender MSK: no gross deformities appreciated Skin: warm, dry, no rash appreciated Neuro: alert, oriented, no focal neurologic deficit appreciated Results & Data Results & Data Vital Signs (Past 12 Hours) Vital Signs Temp Pulse Resp BP BP Pulse Ox Pulse Ox 01/16/25 08:34 97 01/16/25 08:34 36.6 C 126/83 97 01/16/25 08:06 77 15 141/82 H 96 01/16/25 07:39 75 15 136/84 97 01/16/25 07:00 93 H 15 139/87 98 01/16/25 06:30 136/84 01/16/25 06:24 94 01/16/25 06:03 97 01/16/25 06:00 141/80 H 01/16/25 05:32 102 H 01/16/25 05:03 98 01/16/25 05:00 140/86 01/16/25 04:30 132/81 01/16/25 04:27 97 01/16/25 03:54 103 H 21 95 01/16/25 03:53 142/103 H 01/16/25 01:47 97 01/16/25 01:33 100 H 17 98 01/16/25 01:30 141/80 H 01/16/25 01:29 109 H 01/16/25 01:19 36.3 C L 99 H 17 134/98 96 O2 Del Method O2 Del Method 01/16/25 08:34 Room Air 01/16/25 08:34 Room Air 01/16/25 08:06 Room Air 01/16/25 07:39 Room Air 01/16/25 07:00 Room Air 01/16/25 06:30 01/16/25 06:24 Room Air 01/16/25 06:03 Room Air 01/16/25 06:00 01/16/25 05:32 01/16/25 05:03 Room Air 01/16/25 05:00 01/16/25 04:30 01/16/25 04:27 Room Air 01/16/25 03:54 Room Air 01/16/25 03:53 01/16/25 01:47 Room Air 01/16/25 01:33 Room Air 01/16/25 01:30 01/16/25 01:29 01/16/25 01:19 Room Air Resident Activity Tracking Resident Involvement: Resident Care Provided Care Provided: Adult Hospital Medicine
[2025-01-16] MEDS: ESCITALOPRAM OXALATE 10 MG TAB PO SCH (09:13)
--- NOTE | 2025-01-16 11:02 | Urology Consultation ---
Date of Consultation January 16, 2025 Assessment & Plan (1) Nephrolithiasis: Plan 4 mm stone at the left UVJ Hemodynamically stable Discussed different options including surgical intervention via stent plus or minus surgical treatment of the stone immediately As an alternative I discussed a trial of passage She does not have vertigo with the stone and she has not yet received medications that could potentially assist her in this process She has been quite nauseated so I will keep her n.p.o. for the time being but I would like to offer Toradol and tamsulosin in 24 hours to see if we can successfully pass the stone without surgical intervention Will reassess tomorrow morning UA does not appear consistent with infection but if she spikes high fevers or becomes hemodynamically unstable we would intervene immediately History of Present Illness Attending Physician: Mike Kunz History of Present Illness 29-year-old female presents with acute left flank pain with associated nausea and vomiting She is lactose intolerant has low calcium intake Chronic Keppra use No prior kidney stones CT upon arrival shows no stones within either kidney but she has some left hydronephrosis and the stone at the left UVJapproximately 1 cm to travel before passes into the bladder There is stranding or other signs of forniceal rupture Afebrile, borderline tachycardic Leukocytosis of 18 Creatinine 0.8 Reviewing her medications she has received narcotic pain medications but no NSAIDs Zofran for nausea No tamsulosin given yet Allergies Allergy/AdvReac Type Severity Reaction Status Date / Time Penicillins Allergy Mild GI Upset. Verified 09/20/24 12:09 Can take amoxicillin latex Allergy Unknown LATEX Verified 09/20/24 12:09 CONDOMS "BURN" Home Medications Medication Instructions Recorded Confirmed Type levetiracetam 500 mg tablet 500 mg PO BID 05/24/23 01/16/25 History (Keppra) loratadine 10 mg tablet (Claritin) 10 mg PO DAILY PRN Allergy Symptoms 04/22/24 01/16/25 History escitalopram oxalate 10 mg tablet 10 mg PO DAILY #90 tabs 08/30/24 01/16/25 Rx Patient History Medical History (spontaneous vaginal delivery) Pelvic pain complicating GERD (gastroesophageal reflux disease) Occasional heartburn PIH ( induced hypertension) hx Seizure Last Seizure - 2015. Takes Keppra 500mg PO BID Surgical History History of hysterectomy 07-11-[address] Reynolds, [facility] History of dilatation and curettage SAB 05/2014 Family History Grandmother (Paternal) Breast cancer Diabetes Dyslipidemia Hypertension Heart disease Family/Other Prostate cancer Denies family history of Ovarian cancer Myocardial infarction Colorectal cancer Social History Smoking Status: Never smoker Second Hand Exposure: Yes (hx growing up); Do You Dip or Chew Tobacco: No; Hx Alcohol Use: No Hx Substance Use: No Preferred Language: Chinese Communication Ability: Effective Communication Ability Comment: glasses Visual Impairment: Limited Hearing Ability: Normal Tea Blender Required: No Beliefs That Will Affect Care: None marital status: Current Living Situation: Spouse Current Living Situation Comment: 1 level apartment with and daughter current occupational status: employed How many Children do You have: 1 Feels Safe at Home: Yes and No Is there a partner from a previous relationship who is making you feel unsafe now?: No Safety Concerns: Feels Safe At This Time Childhood Exposure to Second-Hand Smoke: Yes Diet: regular caffeine: Yes during the past year weight has: remained stable Dental Care, Regularly: Yes Physical Activity Frequency: 3-4 Times per Week Seatbelt Use: always Sunscreen Use: Yes Do you think of yourself as: straight/heterosexual Sexual Activity: has been sexually active within the last 12 months Gender Identity: Female Assistive Devices: Glasses Review of Systems Review of Systems: As per above Physical Exam Constitutional: well developed and well nourished Neck: neck nontender Respiratory: normal respiratory effort; no respiratory distress and does not use accessory muscles Cardiovascular: Rate/Rhythm: regular rate Vessels: radial pulses present Extremities: no edema Gastrointestinal (Abdomen): Inspection/Auscultation: abdomen normal to inspection Percussion/Palpation: abdomen soft; abdomen nontender and no guarding Musculoskeletal: Head/Neck/Chest: normocephalic and head atraumatic Extremities: extremities normal to inspection Skin: no rashes and no lesions Trauma: no evidence of skin trauma Neurologic: awake; not obtunded Speech / Cognition: normal speech Motor/Sensory: no tremor Psychiatric: Orientation: alert and oriented x 3 Lymphatic: no lymphadenopathy Results & Data Vital Signs (Past 12 Hours) Vital Signs Temp Pulse Resp BP BP Pulse Ox Pulse Ox 01/16/25 09:04 103 H 01/16/25 08:34 97 01/16/25 08:34 36.6 C 126/83 97 01/16/25 08:06 77 15 141/82 H 96 01/16/25 07:39 75 15 136/84 97 01/16/25 07:00 93 H 15 139/87 98 01/16/25 06:30 136/84 01/16/25 06:24 94 01/16/25 06:03 97 01/16/25 06:00 141/80 H 01/16/25 05:32 102 H 01/16/25 05:03 98 01/16/25 05:00 140/86 01/16/25 04:30 132/81 01/16/25 04:27 97 01/16/25 03:54 103 H 21 95 01/16/25 03:53 142/103 H 01/16/25 01:47 97 01/16/25 01:33 100 H 17 98 01/16/25 01:30 141/80 H 01/16/25 01:29 109 H 01/16/25 01:19 36.3 C L 99 H 17 134/98 96 O2 Del Method O2 Del Method 01/16/25 09:04 01/16/25 08:34 Room Air 01/16/25 08:34 Room Air 01/16/25 08:06 Room Air 01/16/25 07:39 Room Air 01/16/25 07:00 Room Air 01/16/25 06:30 01/16/25 06:24 Room Air 01/16/25 06:03 Room Air 01/16/25 06:00 01/16/25 05:32 01/16/25 05:03 Room Air 01/16/25 05:00 01/16/25 04:30 01/16/25 04:27 Room Air 01/16/25 03:54 Room Air 01/16/25 03:53 01/16/25 01:47 Room Air 01/16/25 01:33 Room Air 01/16/25 01:30 01/16/25 01:29 01/16/25 01:19 Room Air PG Care Time/CCT Total # of Minutes Spent Total Time Spent with Patient: Total time spent is greater than 50% in coordination of care (as documented) at patient's floor/unit and/or counseling patient: Coding Level of Care Code 76059 IN/OBS CONSULT LVL 3,45M Diagnoses Nephrolithiasis N20.0
[2025-01-16] MEDS: KETOROLAC 30 MG/ML VIAL IV ONE (12:08)
[2025-01-16] MEDS: TAMSULOSIN HCL 0.4 MG CAP PO ONE (12:09)
[2025-01-16] MEDS: MoRPHine SULFATE 2 MG/ML CARP IV PRN (20:04)
[2025-01-16] MEDS: TAMSULOSIN HCL 0.4 MG CAP PO SCH (20:17)
[2025-01-17] MEDS ORDERED: SODIUM CHLORIDE 0.65% NA SOLN 45 ML (OCEAN) PRN (04:58)
--- NOTE | 2025-01-17 06:11 | Electrocardiogram Report ---
Test Reason : Blood Pressure : */* mmHG Vent. Rate : 89 BPM Atrial Rate : 89 BPM P-R Int : 144 ms QRS Dur : 80 ms QT Int : 350 ms P-R-T Axes : 61 56 52 degrees QTcB Int : 425 ms Normal sinus rhythm with sinus arrhythmia Normal ECG When compared with ECG of 03-Apr-2016 15:13, No significant change was found Confirmed by Nicholas Boss ([id number]) on 01/17/2025 6:11:11 AM Referred By: REFERRED SELF Confirmed By: Nicholas Boss
[2025-01-17 08:11] VITALS: PULSE 87
[2025-01-17] MEDS: KETOROLAC TROMETHAMINE 15 MG/ML VIAL IV PRN (09:08)
--- NOTE | 2025-01-17 09:20 | Urology Progress Note ---
Date of Service January 17, 2025 Assessment & Plan (1) Renal calculus, left: Plan: Follow-up left UVJ stone Patient afebrile with stable vitals No new labs at time of visit this morning Denies stone passage overnight Reports mild left flank discomfort at present Reviewed options for stone management including continuation of trial of passage versus surgical intervention She would like to avoid surgical intervention and wishes to continue trial of passage No acute intervention planned today Reasonable to discharge to home for trial of passage with medical expulsive therapy when medically stable Recommend continue with Tamsulosin and pain management, provide her with a urine strainer Will arrange outpatient urology follow-up will sign off, please contact our service with any additional questions or concerns Admission and Anticipated Discharge Date Admission Date: January 16, 2025 Subjective Patient seen and examined at bedside this morning. She is awake and resting in bed. She reports she did not pass stone overnight. She reports mild flank pain at present, 3 out of 10. Denies nausea, vomiting, fever or chills. Voiding spontaneously. Review of Systems Constitutional: as per Subjective / HPI Genitourinary: as per Subjective / HPI Physical Exam Constitutional: well developed and well nourished; no acute distress Respiratory: normal respiratory effort; no respiratory distress and no labored breathing Gastrointestinal (Abdomen): Inspection/Auscultation: abdomen normal to inspection Musculoskeletal: Head/Neck/Chest: normocephalic Neurologic: moves all extremities and awake Psychiatric: Orientation: alert and oriented x 3 Results & Data Vital Signs (Past 12 Hours) Vital Signs Temp Pulse Pulse Resp BP Pulse Ox Pulse Ox 01/17/25 08:28 98 01/17/25 08:10 36.7 C 87 16 138/84 97 01/17/25 07:17 85 01/17/25 03:31 36.5 C 72 18 114/71 97 01/17/25 01:31 97 01/16/25 22:36 36.5 C 99 H 18 137/77 96 01/16/25 22:11 78 O2 Del Method O2 Del Method 01/17/25 08:28 Room Air 01/17/25 08:10 Room Air 01/17/25 07:17 01/17/25 03:31 Room Air 01/17/25 01:31 Room Air 01/16/25 22:36 Room Air 01/16/25 22:11 PG Care Time/CCT Total # of Minutes Spent Total Time Spent with Patient: Total time spent is greater than 50% in coordination of care (as documented) at patient's floor/unit and/or counseling patient: Coding Level of Care Code 77941 SUB INP/OBS CARE 1/25MIN Diagnoses Renal calculus, left N20.0
[2025-01-17 11:16] VITALS: BP 130/75; RESP 18; TEMP 97.3; O2SAT 96
--- NOTE | 2025-01-17 14:09 | Discharge Summary ---
Discharge Summary Date of Service January 17, 2025 Principal Dx & Hospital Course #1 = Principal Diagnosis (1) Renal calculus, left: Plan 29-year-old female PMHx anxiety, premenstrual tension syndrome, and partial hysterectomy presenting obstructive L distal ureteric calculus causing mild L hydroureteronephrosis. #L Renal calculi/hydroureteronephrosis - history of partial hysterectomy approximately 1 year ago, without history of renal calculi. - sinus tachycardia in the low 100s-> continue to watch on tele - UA shows ketones, blood, RBC, bacteria, calcium oxalate crystals, No prior cultures for comparison. - CTAP with L distal ureteric calculus causing mild L hydroureteronephrosis - Pelvic ultrasound with unremarkable ovaries and no free fluid in pelvis - Urology consulted- appreciate input and recs-> add tamsulosin/Toradol/ PAIN RESOLVED AFTER SPONTANEOUS EXPULSION OF STONE #Hypokalemia - K 3.2; Mg 1.7 - Repleted, BMP qAM #Anxiety- Lexapro, continue #H/o seizure- Follows with neurology annually, last seizure appears to be March 2016; on Keppra at baseline, no missed doses- continue Admission HPI Per Admitting Provider 29-year-old female PMHx anxiety, premenstrual tension syndrome, and partial hysterectomy presenting for L sided flank pain starting at 2230. Patient reports sudden onset L sided flank pain that was 10 out of 10 in nature and a sharp pain. States it started to radiate to the front but did not radiate into groin. At time of visit, pain has subsided some following pain medication administration and is currently 7 out of 10 on the pain scale. Patient has had episodes of nausea with vomiting since the onset of the pain. Specifically denying dysuria, frequency, urgency, or hematuria. States that she has never had this happen before. No fever or chills. Otherwise denying chest pain, shortness of breath, cough stations, abdominal pain, diarrhea/constipation, LUTS, URI symptoms, or headache. ED evaluation reveals leukocytosis 18.94, neutrophil predominant; CMP potassium 3.2, lipase 4; UA with ketones, blood, RBC, 2+ bacteria, calcium oxalate crystals, and mucus; BioFire negative; CTAP reveals obstructive L distal ureteric calculus causing mild L hydroureteronephrosis; pelvic ultrasound unremarkable ovaries with likely are dominant follicle, no free fluid in pelvis; EKG NSR with sinus arrhythmia at 89 bpm. Provided with 1L NSS, ondansetron, morphine, and Rocephin in ED. Discharge Exam Constitutional WD/WN, vitals as above Respiratory normal respiratory effort, lungs clear to auscultation Cardiovascular RRR, no murmur, no edema Discharge Plan Discharge Items Patient Disposition: Home - Self-Care Reason For Visit: RENAL STONE, L Discharge Diagnosis: renal stone L Activity: Resume your previous activity Non-emergency contact: Primary Care Provider Call non-emergency contact if: you have any medication questions Follow-up/Referrals: Tramaine Barrientos, [Primary Care Provider] - 01/25/25 10:30 am Diet: Regular Addtl Attending Provider Instructions: Recommend followup with PCP in 1-2 weeks. Urology will arrange outpatient followup as well. Pending Studies at Discharge: No Stand-Alone Forms: [employer], Smoking Cessation Medications and DC Order Prescriptions: New tamsulosin 0.4 mg Capsule 0.4 mg PO HS Qty: 30 0RF acetaminophen [Aminofen] 325 mg tablet 650 mg PO Q6H 7 Days Qty: 56 0RF tramadol 50 mg tablet 50 mg PO Q8H PRN (Reason: pain) Qty: 14 0RF Continued escitalopram oxalate 10 mg tablet 10 mg PO DAILY Qty: 90 3RF loratadine [Claritin] 10 mg tablet 10 mg PO DAILY PRN (Reason: Allergy Symptoms) levetiracetam [Keppra] 500 mg tablet 500 mg PO BID Discharge Orders: Discharge Order (Routine); Ordered 01/17/25 Ordered By: Mike Kunz Admission Data Admit Date/Time: 01/16/25 05:53 Attending Provider: Mike Kunz Admit Provider: Marc Burgos Primary Care Provider: Tramaine Barrientos Other Providers: Marc Burgos; Ashutosh Paz Other Interventions: Discharge Summary Assessment (RN) Last Done: 01/17/25 14:57 Hospital Stay Data Consultations 01/16/25 05:35 ED Decision to Admit Stat 01/16/25 08:28 Consult Urology Routine Diagnostic Imagining Performed 01/16/25 01:30 CT abd pelvis IV con only Stat 01/16/25 01:45 pelvic complete Stat Pending Results Patient Have Any Pending Studies at Discharge: No Discharge Instructions Given to Patient (Per Discharging Provider) Recommend followup with PCP in 1-2 weeks. Urology will arrange outpatient followup as well. Total Time Total Time Spent Total Time Spent (In Minutes): 32 Coding Level of Care Code 28315 INP/OBS DISCH >30 MIN Diagnoses Renal calculus, left N20.0
== END 2025-01-17 15:31 | disposition home or self-care (01) ==
LOC: SUATTDRO → 2N 01:15 → ED 01:15 → SUATTDRO 05:53 → 2N 08:09